=== PATIENT | female | born 2000 | race Two or more races ===

== ENCOUNTER → 2022-09-29 | Outpatient (REF) | payer OTHER ==
[2022-09-29 18:30] LABS: BACTERIA, URINE AUTO NEGATIVE (NEGATIVE); RBC, URINE AUTO 0 /HPF (0-3); SQUAMOUS EPITHELIAL CELL UR AU 3 /HPF (0-6); WBC, URINE AUTO 7 /HPF (0-3)
[2022-09-29 18:41] LABS: CREATININE,RANDOM URINE 92.7 MG/DL
== END ==
LOC: M LAB REF 17:26
PROVIDERS: ATTEND Internal Medicine Nephrology
DX: R31.9 Hematuria, unspecified (principal)

== ENCOUNTER → 2022-10-21 | Outpatient (REF) ==
[2022-10-21 10:53] LABS: RSV AMPLIFICATION NEGATIVE (NEGATIVE)
== END ==
LOC: M EMP 09:58
PROVIDERS: ATTEND Family Medicine
DX: Z11.52 Encounter for screening for COVID-19 (principal)

== ENCOUNTER → 2022-12-31 | Outpatient (CLI) | payer OTHER | LOC: M RAD 12:08 | PROVIDERS: ATTEND Internal Medicine Nephrology | DX: N18.1 Chronic kidney disease, stage 1 (principal) ==

== ENCOUNTER 2023-01-08 19:04 | Emergency (ER) | payer OTHER ==
[~2023-01-08] VITALS: Ht 180.3 cm; Wt 170.9 kg
[2023-01-08 19:08] VITALS: BP 147/92; TEMP 99.1; O2SAT 98
[2023-01-08] MEDS ORDERED: KETOROLAC 60MG 2ML VIAL IM ONE (19:35)
== END 2023-01-08 22:16 | disposition home or self-care (01) ==
LOC: M ED 19:04
DX: M54.50 Low back pain, unspecified (principal); Y04.2XXA Assault by strike against or bumped into by another person, initial encounter; Z88.8 Allergy status to other drugs, medicaments and biological substances; Y99.0 Civilian activity done for income or pay
CPT/HCPCS: 73030; 73110; 73560; 73600; 84702; 96372; 99283; J1885

== ENCOUNTER 2023-05-06 16:51 | Emergency (ER) | payer OTHER ==
[~2023-05-06] VITALS: Ht 180.3 cm; Wt 170.0 kg
[2023-05-06] MEDS ORDERED: HYDR12CA PO (17:05)
[2023-05-06 18:00] LABS: BASO # 0.1 10^3/uL (0.0-0.2); BASO % 0.8 % (0.0-1.0); EOS # 0.1 10^3/uL (0.0-0.5); EOS % 1.4 % (0.0-3.0); HEMATOCRIT 39.1 % (36.0-47.0); HEMOGLOBIN 13.1 g/dl (12.0-15.5); LYMPH # 2.5 10^3/uL (1.5-5.0); LYMPH % 32.4 % (24.0-44.0); MEAN CORPUSCULAR HEMOGLOBIN 28.9 pg (27.0-33.0); MEAN CORPUSCULAR HGB CONC 33.5 g/dl (32.0-36.5); MEAN CORPUSCULAR VOLUME 86.1 fl (80.0-96.0); MONO # 0.6 10^3/uL (0.0-0.8); MONO % 8.2 % (2.0-8.0); NEUTROPHILS # 4.5 10^3/uL (1.5-8.5); NEUTROPHILS % 56.8 % (36.0-66.0); PLATELET COUNT, AUTOMATED 277 10^3/uL (150-450); RED BLOOD COUNT 4.54 10^6/uL (4.00-5.40); WHITE BLOOD COUNT 7.8 10^3/uL (4.0-10.0)
[2023-05-06 18:28] LABS: CK-MB VALUE MASS < 1.0 NG/ML (<3.6); HCG, SERUM QUALITATIVE NEGATIVE (NEGATIVE)
[2023-05-06 18:30] LABS: BLOOD UREA NITROGEN 13 MG/DL (9-23); CALCIUM LEVEL 8.7 MG/DL (8.5-10.1); CARBON DIOXIDE LEVEL 28 MMOL/L (20-31); CHLORIDE LEVEL 108 MMOL/L (98-107); CPK CREATINE PHOSPHOKINASE 87 U/L (34-145); CREATININE FOR GFR 0.62 MG/DL (0.55-1.30); GLOMERULAR FILTRATION RATE > 60.0 (>60); GLUCOSE, FASTING 81 MG/DL (60-100); MB/CK RELATIVE INDEX 1.14 (< OR =4); SODIUM LEVEL 141 MMOL/L (136-145)
[2023-05-06 22:30] VITALS: BP 170/98; TEMP 97.2; O2SAT 97
== END 2023-05-06 22:32 | disposition home or self-care (01) ==
LOC: M ED 16:51
DX: S93.401A Sprain of unspecified ligament of right ankle, initial encounter (principal); S20.20XA Contusion of thorax, unspecified, initial encounter; Y04.0XXA Assault by unarmed brawl or fight, initial encounter; I10 Essential (primary) hypertension; E28.2 Polycystic ovarian syndrome; F10.10 Alcohol abuse, uncomplicated; Z88.8 Allergy status to other drugs, medicaments and biological substances; Y92.9 Unspecified place or not applicable; Y93.9 Activity, unspecified; Y99.0 Civilian activity done for income or pay; Z79.899 Other long term (current) drug therapy